=== PATIENT | male | born 1950 | race Caucasian/White ===

== ENCOUNTER → 2019-03-21 | Outpatient (CLI) | payer MEDICARE ==
[2019-03-21 15:23] LABS: HCT 52.8 % (39.0-53.0); HGB 17.7 gm/dL (13.0-17.5); MCH 32.3 pg (25.0-35.0); MCHC 33.6 g/dL (31.0-37.0); MCV 96.1 fL (80.0-100.0); Mean Platelet Volume 8.9; Platelet Count 242 k/uL (150-450); RBC 5.49 m/uL (4.30-5.90); RDW 12.2 % (11.5-15.5); WBC 6.5 k/uL (3.8-10.6)
[2019-03-21 15:42] LABS: Potassium 4.8 mmol/L (3.5-5.1)
== END | disposition home or self-care (01) ==
LOC: LABPAT 14:43
PROVIDERS: ATTEND Internal Medicine Interventional Cardiology
DX: Z01.812 Encounter for preprocedural laboratory examination (principal); E78.00 Pure hypercholesterolemia, unspecified; I10 Essential (primary) hypertension; I20.9 Angina pectoris, unspecified
CPT/HCPCS: 80051; 82565; 82947; 84520; 85027

== ENCOUNTER 2019-03-25 09:16 | Day surgery (SDC) | payer MEDICARE ==
[2019-03-24 10:31] VITALS: BMI 29.7
[2019-03-25] MEDS ORDERED: SODIUM CHLORIDE 0.9% 1,000 ML IV ONE (09:46)
[2019-03-25] MEDS ORDERED: MIDAZOLAM 2 MG/2 ML VIAL IV ONE (12:10)
[2019-03-25] MEDS ORDERED: LIDOCAINE 1% INJ 10MG/ML (20 ML MDV) SQ ONE (12:12)
[2019-03-25] MEDS: VERAPAMIL SYRINGE (5 MG/10 ML) INTRAARTER ONE ×2 (12:14→12:46)
[2019-03-25] MEDS ORDERED: BIVALIRUDIN 250 MG in SODIUM CHLORIDE 0.9% 50 ML IV ONE (12:29)
[2019-03-25] MEDS ORDERED: BIVALIRUDIN BOLUS 250 MG/50 ML IV ONE (12:29)
[2019-03-25] MEDS ORDERED: NITROGLYCERIN 1000MCG/10ML SYRINGE INTRACORON ONE (12:40)
[2019-03-25] MEDS ORDERED: IOPAMIDOL-370 100ML BTL INJ ONE (12:41)
[2019-03-25] MEDS ORDERED: TICAGRELOR 90 MG TAB PO ONE (12:46)
[2019-03-25] MEDS ORDERED: IOPAMIDOL-370 50ML BTL INJ ONE (12:47)
[2019-03-25] MEDS ORDERED: ALPRAZolam 0.5 MG TAB PO PRN (13:17)
[2019-03-25] MEDS ORDERED: ASPIRIN 325 MG TAB PO STA (13:17)
[2019-03-25] MEDS ORDERED: NITROGLYCERIN SL TABS 0.4 MG TAB SUBLINGUAL PRN (13:17)
[2019-03-25] MEDS ORDERED: ALPRAZolam 0.25 MG TAB PO PRN (13:17)
[2019-03-25] MEDS ORDERED: ATORVASTATIN 80 MG TAB PO STA (13:17)
[2019-03-25] MEDS ORDERED: SODIUM CHLORIDE 0.9% 1,000 ML in EMPTY BAG 1 BAG IV ONE (13:17)
[2019-03-25] MEDS ORDERED: SODIUM CHLORIDE 0.9% 1,000 ML IV SCH (13:30)
--- NOTE | 2019-03-25 13:30 | CC ---
CARDIAC CATHETERIZATION REPORT DATE OF SERVICE: 03/25/2019. PROCEDURE: 1. Left heart catheterization and coronary angiography. 2. PTCA and stenting of a 95% mid LAD stenosis with a drug-eluting stent. PERFORMED BY: Dr. Aspen Vela. CLINICAL INFORMATION: Mr. 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 He has history of hypertension and is quite active, does quite a bit of walking. For the last couple of months he has been experiencing chest pressure when he walks about a mile, he has to stop, pause and get better. These symptoms have progressively gotten worse to the point that he is unable to walk or even hesitating to walk. In view of his classic symptoms of unstable angina, I recommended coronary angiography after initiating him on a beta preeti, statin and aspirin. He was already on lisinopril. Risks, benefits, options and rationale were explained to the patient and . PROCEDURE NOTE: Under local anesthesia and strict aseptic precautions, a 6-Bel[place]an introducer was placed in the right radial artery. Using a JL3.5 and a JR4 catheter, I performed coronary angiography and the same right catheter was used to check LV pressures. LV gram was not performed. The patient had a significant lesion in the mid LAD and he was advised to have an intervention performed expeditiously. Following the intervention procedure, the sheath was taken out and TR band applied as per protocol and saturation in the fingers of the right hand was 100%. CARDIAC CATHETERIZATION FINDINGS: RIGHT CORONARY ARTERY: Technically a codominant vessel, large caliber, good distribution gives off a large acute marginal and bifurcation is very early, PDA and PLV both come off. Supplies a fair amount of myocardium, has minor irregularities. LEFT MAIN CORONARY ARTERY: A long vessel. No significant disease. Bifurcates into LAD and circumflex. LEFT ANTERIOR DESCENDING CORONARY ARTERY: Very proximally there is a 40% to 50% lesion in the LAD as it comes off from the left main. After the origin of a first septal and diagonal branch, there is an eccentric hazy 95% LAD lesion after which the caliber improves and the vessel runs all the way to the apex, gives off another diagonal branch as it runs towards the apex. LAD is a fair caliber vessel, has minor diffuse disease but the midportion has a 95% hazy lesion. This is probably the culprit lesion. LEFT POSTERIOR CIRCUMFLEX CORONARY ARTERY: Technically a codominant vessel gives off a large obtuse marginal then a second obtuse marginal, a groove branch and then posterolateral/PDA branch distally. The first obtuse marginal has a 40% narrowing. The remaining branches of circumflex are free of significant disease. Left ventriculogram was not performed. Left ventricular end-diastolic pressure was about 6 mmHg without any gradient across the aortic valve. FINAL IMPRESSION: This patient has a codominant system, normal filling pressures, no gradient across aortic valve and 95% mid left anterior descending artery lesion, 40% proximal ostial left anterior descending artery lesion and another 40% first obtuse marginal lesion. RECOMMENDATIONS: I recommended PCI of LAD and proceeded to perform this in the same setting. PCI PROCEDURE DETAILS: I used a JL3.5 guide catheter to cannulate the left coronary artery. A run-through wire was used to cross the lesion. A predilatation of the mid LAD lesion was performed with a 2.5 caliber Trek balloon of 12 mm length. I then deployed a 15 mm long 3.0 caliber Xience stent at 13 atmospheres. The patient had mild chest discomfort, significant precordial ST elevation. Excellent angiographic result was achieved without complication. Multiple angiograms were obtained. The sheath was taken out and TR band applied as per protocol and he was sent to the room in a stable condition. Saturation the fingers of the right hand was 95%. The patient received Angiomax bolus and infusion. He also received Brilinta 180 mg orally. Results were discussed with the patient and family. MMODL / IJN: [id number] /
[2019-03-25 17:57] VITALS: RESP 18
[2019-03-25] MEDS ORDERED: LISINOPRIL 20 MG TAB PO SCH (19:00)
[2019-03-25] MEDS: TICAGRELOR 90 MG TAB PO SCH (19:10)
[2019-03-26 04:13] VITALS: TEMP 97.9
[2019-03-26] MEDS: TICAGRELOR 90 MG TAB PO SCH (06:05)
[2019-03-26] MEDS: METOPROLOL TARTRATE 25 MG TAB PO SCH ×2 (06:06→09:02)
[2019-03-26 06:10] LABS: Basophils % (A) 0 %; Eosinophils # (A) 0.1 k/uL (0-0.7); Eosinophils % (A) 1 %; HCT 50.1 % (39.0-53.0); HGB 16.7 gm/dL (13.0-17.5); Lymphocytes # (A) 1.2 k/uL (1.0-4.8); Lymphocytes % (A) 14 %; MCH 31.1 pg (25.0-35.0); MCHC 33.4 g/dL (31.0-37.0); MCV 93.1 fL (80.0-100.0); Mean Platelet Volume 9.2; Monocytes # (A) 0.7 k/uL (0-1.0); Monocytes % (A) 9 %; Neutrophils # (A) 6.1 k/uL (1.3-7.7); Neutrophils % (A) 73 %; Platelet Count 209 k/uL (150-450); RBC 5.38 m/uL (4.30-5.90); RDW 12.1 % (11.5-15.5); WBC 8.3 k/uL (3.8-10.6)
[2019-03-26 06:20] LABS: African American GFR (CKD) >90 (>60 ml/min/1.73 sqM); Anion Gap 9 mmol/L; Blood Urea Nitrogen 21 mg/dL (9-20); Calcium 9.5 mg/dL (8.4-10.2); Carbon Dioxide 22 mmol/L (22-30); Chloride 105 mmol/L (98-107); Glucose 98 mg/dL (74-99); Non-African American GFR(CKD) 83 (>60 ml/min/1.73 sqM); Potassium 4.7 mmol/L (3.5-5.1); Sodium 136 mmol/L (137-145)
[2019-03-26] MEDS ORDERED: LISINOPRIL 20 MG TAB PO SCH ×2 (07:00→09:00)
[2019-03-26] MEDS ORDERED: ASPIRIN 81 MG PO SCH ×2 (07:00→09:00)
[2019-03-26] MEDS ORDERED: ATORVASTATIN 80 MG TAB PO SCH ×2 (07:00→09:00)
[2019-03-26 08:07] VITALS: BP 149/72; PULSE 72
--- NOTE | 2019-03-26 08:52 | DS ---
DISCHARGE SUMMARY DATE OF ADMISSION: 03/25/2019 DATE OF DISCHARGE: 03/26/2019. DIAGNOSES: 1. Unstable angina. 2. Hypertension. PROCEDURES PERFORMED: Left heart catheterization and coronary angiography, PTCA and stenting of mid LAD with a drug-eluting stent. Mr. Rosas was admitted electively because of unstable angina. Cardiac cath was performed from right radial approach. Study revealed noncritical disease in the circumflex marginal and proximal LAD, but significant critical stenosis in the mid LAD. This was addressed with a drug-eluting stent. Excellent angiographic result was achieved. Postprocedure course was unremarkable for any angina. EKG will be reviewed. Labs are unremarkable. However, patient had some amount of anxiety. He felt he could not take a full breath, but there were no issues with hypoxia. This morning he is feeling better. Vitals are stable. Blood pressure 120/80, pulse rate 58 per minute. No JVD. S1, S2 heard normally. Lungs are clear. Abdomen and lower extremities exam unchanged. The right radial cath site is clean and dry with a good pulse. The patient will be discharged today and I will see him in the office tomorrow at 2:30 p.m. Discharge instructions regarding activity, diet and medications were given. Dual antiplatelet therapy, statin and beta blockers were reinforced. MMODL / IJN: [id number] /
[2019-03-26] MEDS ORDERED: TICAGRELOR 90 MG TAB PO SCH (09:00)
[2019-03-26] MEDS ORDERED: METOPROLOL TARTRATE 25 MG TAB PO SCH (09:00)
== END 2019-03-26 09:11 | disposition home or self-care (01) ==
LOC: CATHCVL 09:16 → 3SCARD 14:11 → CATHCVL 03-26 09:11
PROVIDERS: ATTEND Internal Medicine Interventional Cardiology
DX: I25.110 Atherosclerotic heart disease of native coronary artery with unstable angina pectoris (principal); I10 Essential (primary) hypertension; E78.5 Hyperlipidemia, unspecified; E78.00 Pure hypercholesterolemia, unspecified; I27.20 Pulmonary hypertension, unspecified; Z79.82 Long term (current) use of aspirin; Z79.899 Other long term (current) drug therapy
CPT/HCPCS: 93458; 80048; 85025; C9600; C1887; C1725; C1769 ×3; C1874; C1894; J2250; J2001; J0583; J1644; Q9967 ×2

== ENCOUNTER → 2020-08-13 | Outpatient (CLI) | payer MEDICARE ==
[2020-08-13 16:57] LABS: HCT 47.9 % (39.6-50.0); HGB 15.8 g/dL (13.0-17.0); MCH 31.6 pg (27.0-32.0); MCV 95.8 fL (80.0-97.0); Mean Platelet Volume 11.9 fL (9.5-12.2); Platelet Count 194 X 10*3/uL (140-440); RDW 12.8 % (11.5-14.5); WBC 5.32 X 10*3/uL (4.50-10.00)
[2020-08-13 18:57] LABS: African American GFR (CKD) 69.6 (60.0-200.0); Anion Gap 5.4 mmol/L (4.00-12.00); BUN/Creat Ratio 14.17 Ratio (12.00-20.00); Calcium 9.3 mg/dL (8.7-10.3); Carbon Dioxide 25.6 mmol/L (21.6-31.8); Non-African American GFR(CKD) 60.1 (60.0-200.0); Potassium 4.5 mmol/L (3.5-5.5)
== END | disposition home or self-care (01) ==
LOC: LABWHC1 07:18
PROVIDERS: ATTEND Internal Medicine Interventional Cardiology
DX: I10 Essential (primary) hypertension (principal); I25.10 Atherosclerotic heart disease of native coronary artery without angina pectoris
CPT/HCPCS: 36415; 80048; 85027

== ENCOUNTER 2020-08-26 09:16 | Day surgery (SDC) | payer MEDICARE ==
[2020-08-24 14:06] VITALS: BMI 30.5
[~2020-08-26 09:16] MED LIST: ALPRAZolam 0.25 MG TAB PO PRN; ALPRAZolam 0.5 MG TAB PO PRN; ASPIRIN 325 MG TAB PO ONE; ATORVASTATIN 80 MG TAB PO ONE; HEPARIN SODIUM,PORCINE 10,000 UNIT in SODIUM CHLORIDE 0.9% 1,000 ML IRRIGATION PRN; HEPARIN SODIUM,PORCINE 2,500 UNIT in SODIUM CHLORIDE 0.9% 250 ML IRRIGATION PRN; NITROGLYCERIN SL TABS 0.4 MG TAB SUBLINGUAL PRN; SODIUM CHLORIDE 0.9% 1,000 ML in EMPTY BAG 1 BAG IV ONE
[2020-08-26] MEDS ORDERED: SODIUM CHLORIDE 0.9% 1,000 ML IV ONE ×2 (09:27→15:45)
[2020-08-26 09:48] VITALS: TEMP 98.3
[2020-08-26] MEDS ORDERED: LIDOCAINE 1% INJ 10MG/ML (20 ML MDV) ONE (10:39)
[2020-08-26] MEDS ORDERED: VERAPAMIL 2.5 MG/ML 2 ML AMP ONE (10:39)
[2020-08-26] MEDS ORDERED: HEPARIN SODIUM 1,000 UN/ML (10ML VL) ONE (10:56)
[2020-08-26] MEDS ORDERED: MIDAZOLAM 2 MG/2 ML VIAL IV ONE (11:12)
[2020-08-26] MEDS ORDERED: LIDOCAINE 1% INJ 10MG/ML (20 ML MDV) SQ ONE (11:14)
[2020-08-26] MEDS ORDERED: VERAPAMIL SYRINGE (5 MG/10 ML) INTRAARTER ONE (11:16)
[2020-08-26] MEDS ORDERED: fentaNYL (PF) 50 MCG/ML 2 ML AMP ONE (11:26)
[2020-08-26] MEDS ORDERED: fentaNYL (PF) 50 MCG/ML 2 ML AMP IV ONE (11:30)
[2020-08-26] MEDS ORDERED: CLOPIDOGREL 75 MG TAB ONE (11:42)
[2020-08-26] MEDS ORDERED: IOPAMIDOL-370 100ML BTL INJ ONE ×2 (11:51→12:28)
[2020-08-26] MEDS ORDERED: NITROGLYCERIN 1000MCG/10ML SYRINGE INTRACORON ONE (12:14)
[2020-08-26] MEDS ORDERED: IOPAMIDOL-370 50ML BTL INJ ONE (12:31)
[2020-08-26] MEDS ORDERED: CLOPIDOGREL 75 MG TAB PO ONE (12:35)
[2020-08-26] MEDS ORDERED: SODIUM CHLORIDE 0.9% 1,000 ML IV SCH (12:45)
[2020-08-26 17:01] VITALS: BP 106/60; RESP 16
[2020-08-26 17:55] VITALS: PULSE 49
--- NOTE | 2020-08-26 18:37 | CC ---
CARDIAC CATHETERIZATION REPORT DATE OF SERVICE: 08/26/2020 PROCEDURES: 1. Left heart catheterization and coronary angiography. 2. PTCA and stenting of a very complex, difficult, tortuous circumflex marginal with a drug-eluting stent. PERFORMED BY: Dr. Aspen Vela. SEDATION: Moderate conscious sedation time was 79 minutes. The patient was administered Versed, fentanyl. Oxygen saturation, hemodynamics and EKG were monitored closely. CLINICAL INFORMATION: Mr. Phillip Rosas is a 70-year-old gentleman with a history of CAD and previous stenting of mid LAD performed in March of 2019. He has a codominant system. There was a moderate disease in the circumflex marginal. He was doing well until lately and because of symptoms of shortness of breath and nondescript chest tightness. I performed a stress test. He walked for about 4 minutes. Heart rate 134 beats per minute. There was a moderate-sized inferolateral reversible defect with exercise induced hypokinesia. He was advised cardiac catheterization after due discussion regarding risks, benefits, and options. PROCEDURE NOTE: Under local anesthesia and strict aseptic precautions, a 6-Vietnamese introducer was placed in the right radial artery. Using a JR4 4 and JL 3.5 catheters, I performed coronary angiography and the same right catheter was used to check LV pressures. Following this, I noted that he had a widely patent LAD at the site of stenting, but there was a new lesion in the circumflex marginal eccentric, best seen in the MALAYSIAN caudal and MALAYSIAN cranial projections, of about 70-80 percent. He was advised intervention that was performed in the same setting. Following the procedure, the sheath was taken out and TR band applied as per protocol with saturation of the ( ) of about 97% in the hand. The patient tolerated procedure well without complications. CARDIAC CATHETERIZATION FINDINGS: Left ventricular end-diastolic pressure was about 12 mmHg without any gradient across aortic valve. CORONARY ANGIOGRAPHY FINDINGS: RIGHT CORONARY ARTERY: This appears to be a codominant vessel. No significant disease, minor irregularities. The early bifurcation gives off what seems to be a PDA and PLV, which also have minor irregularities. No significant disease. LEFT MAIN CORONARY ARTERY: Short, patent vessel that immediately bifurcates into LAD and circumflex. No significant disease in the left main. LEFT ANTERIOR DESCENDING CORONARY ARTERY: 40% ostial lesion as it comes off from the left main. The mid lesion, which was stented, is widely patent with remarkably good flow. The LAD is relatively fair caliber vessel, has minor irregularities and runs all the way to the apex supplying a sizable amount of myocardium. The LAD, therefore, is widely patent at the site of previous stenting. LEFT POSTERIOR CIRCUMFLEX CORONARY ARTERY: This is a codominant vessel, gives off obtuse marginal branch that comes off at a very acute angle as it comes off from the main circumflex, there is an eccentric 70-80 percent stenosis best seen in the MALAYSIAN cranial projection. Following this, the continuation of circumflex is relatively smaller and gives off a distal post lateral branch, a groove branch, and another secondary branch, all of which have minor irregularities. The circumflex marginal therefore has a significant 70-80 percent lesion and appears to be a fair caliber vessel of about 3.0 mm. LEFT VENTRICULOGRAM: Was not performed. FINAL IMPRESSION: This patient has a codominant system. Widely patent RCA and LAD at the site of previous stenting is widely patent. Circumflex marginal, which is a very difficult acute angle, has about a 70-80 percent stenosis, which is the culprit lesion with inferolateral reversible defect on the stress test. RECOMMENDATIONS: I advised intervention of the circumflex marginal and performed this in the same setting. 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 A run- through wire was used. I could not get into the circumflex marginal because of extreme angulation. I tried different wires. I also used a super cross at 45 degrees but could not gain access. Finally, with a very a very steep curve on a BMW J-tipped wire, I was able to get into the circumflex marginal. I attempted for over 45 minutes. Eventually, the wire was kept distally. Predilatation was performed with a 2.58 mm NC trek and I deployed a 12 mm long 3.0 caliber Xience stent at 12 atmospheres. Patient did not have any significant symptoms or EKG changes. Excellent angiographic result without complication was achieved. The continuation of the circumflex had a mild impingement, but the flow was remarkably good. Excellent angiographic result was achieved. Patient received intravenous heparin of total of 6000 units. ACT was about 256. Patient was already on aspirin and Plavix. He was given additional 300 mg of Plavix. Excellent angiographic result without complication was achieved and he was sent to the room in a stable condition. Findings were discussed with the patient and . I expect he will be discharged later on today if he remains stable and I will see him in the office in 7-10 days. PHUONG / SHAJI: [id number] /
== END 2020-08-26 17:40 | disposition home or self-care (01) ==
LOC: CATHCVL 09:16
PROVIDERS: ATTEND Internal Medicine Interventional Cardiology
DX: I25.110 Atherosclerotic heart disease of native coronary artery with unstable angina pectoris (principal); I10 Essential (primary) hypertension; E78.00 Pure hypercholesterolemia, unspecified; R94.39 Abnormal result of other cardiovascular function study; Z95.5 Presence of coronary angioplasty implant and graft; E78.5 Hyperlipidemia, unspecified; Z79.02 Long term (current) use of antithrombotics/antiplatelets; Z79.82 Long term (current) use of aspirin; Z79.899 Other long term (current) drug therapy
CPT/HCPCS: 93458; C9600; C1769 ×4; C1887 ×2; C1894; C1725; C1874; J2250; J2001; J3010; J1644; Q9967 ×2